=== PATIENT | female | born 1970 | race Caucasian/White ===

== ENCOUNTER 2018-03-25 23:10 | Emergency (ER) | payer MEDICARE ==
[~2018-03-25] VITALS: Ht 160 cm; Wt 68.0 kg
[2018-03-26] MEDS ORDERED: KETOROLAC TROMETHAMINE 60 MG/2 ML VIAL IM ONE (00:45)
--- NOTE | 2018-03-26 01:45 | Diagnostic Imaging Report ---
EXAM: ELBOW RIGHT COMPLETE, AP, lateral and oblique INDICATION: Fall, pain posterior right elbow COMPARISON: None FINDINGS: BONES: No acute fractures. JOINTS: No malalignment. SOFT TISSUES: Normal IMPRESSION: No evidence of a right elbow fracture. Signed by: Dr. Nichole Ahmadi M.D. on 03/26/2018 1:41 AM
== END 2018-03-26 02:04 | disposition home or self-care (01) ==
LOC: ER 23:10
DX: S50.01XA Contusion of right elbow, initial encounter (principal); W18.2XXA Fall in (into) shower or empty bathtub, initial encounter; Y93.E1 Activity, personal bathing and showering; Y92.002 Bathroom of unspecified non-institutional (private) residence as the place of occurrence of the external cause
CPT/HCPCS: 73080; 99283; J1885

== ENCOUNTER 2018-06-30 00:21 | Inpatient (IN) | payer MEDICARE ==
[2018-06-30] VITALS (8 sets, daily range): BP systolic 118–137; BP diastolic 67–73
[~2018-06-30] VITALS: Ht 160 cm; Wt 89.4 kg
--- OUTSIDE RECORDS SUMMARY | 2018-06-30 00:24 | XMS REPORT ---
Author Author [facility] Address Unknown Phone Unavailable Care Team Providers Care Equipment Operator Name Role Phone Ronald MITCHELL Unavailable Unavailable Problems This patient has no known problems. Allergies, Adverse Reactions, Alerts This patient has no known allergies or adverse reactions. Medications This patient has no known medications. Results Test Description Test Time Test Comments Text Results Atomic Results Result Comments ELBOW RIGHT COMPLETE 2018-03-26 01:41:00 [place] [id number] Patient Name: KATHIA TOTH MR #: [id number] : 1970 Age/Sex: 48/F Req #: [id number] Adm Physician: Ordered by: GOSIA MITCHELL MD Report #: [id number] Location: ER Room/Bed: Procedure: [id number] DX/ELBOW RIGHT COMPLETE Exam Date: 03/26/18 Exam Time: 0115 REPORT STATUS: Signed EXAM: ELBOW RIGHT COMPLETE, AP, lateral and oblique INDICATION: Fall, pain posterior right elbow COMPARISON: None FINDINGS: BONES: No acute fractures. JOINTS: No malalignment. SOFT TISSUES: Normal IMPRESSION: No evidence of a right elbow fracture. Signed by: Dr. Ryan Lorenzo M.D. on 03/26/2018 1:41 AM Dictated By: RYAN LORENZO MD [id number] Transcribed By: MARY on 03/26/18140 COPY TO: GOSIA MITCHELL MD
[2018-06-30] MEDS ORDERED: SODIUM CHLORIDE 0.9% 1000ML 1,000 ML IV STA (00:28)
[2018-06-30 01:16] LABS: BASOPHILS # (AUTO) 0.1 (0.0-0.1); BASOPHILS % 0.3 % (0.0-1.0); HEMATOCRIT 40.9 % (34.2-44.1); HEMOGLOBIN 13.4 g/dL (12.0-16.0); LYMPHOCYTES # (AUTO) 0.8 (1.0-3.2); LYMPHOCYTES % 2.8 % (18.0-39.1); MEAN CORPUSCULAR HEMOGLOBIN 27.4 pg (28-32); MEAN CORPUSCULAR HGB CONC 32.8 g/dL (31-35); MEAN CORPUSCULAR VOLUME 83.6 fL (81-99); MONOCYTES # (AUTO) 1.7 (0.2-0.8); MONOCYTES % 5.8 % (4.4-11.3); NEUTROPHILS # (AUTO) 25.5 (2.1-6.9); NEUTROPHILS % 90.5 % (38.7-80.0); PLATELET COUNT 380 x10e3/uL (140-360); RED BLOOD COUNT 4.89 x10e6/uL (3.6-5.1); RED CELL DISTRIBUTION WIDTH 13.2 % (11.7-14.4)
[2018-06-30 01:35] LABS: ALANINE AMINOTRANSFERASE 30 IU/L (0-55); ALBUMIN 3.5 g/dL (3.5-5.0); ALKALINE PHOSPHATASE 73 IU/L (40-150); ANION GAP 16.7 mmol/L (8-16); BLOOD UREA NITROGEN 16 mg/dL (7-26); BUN/CREATININE RATIO 19 (6-25); CALCIUM 8.7 mg/dL (8.4-10.2); CARBON DIOXIDE 19 mmol/L (22-29); CHLORIDE 107 mmol/L (98-107); CREATINE KINASE 74 IU/L (29-168); CREATININE, SERUM 0.86 mg/dL (0.57-1.11); EST GLOMERULAR FILTRATION RATE > 60 ML/MIN (60-); GLUCOSE 113 mg/dL (74-118); LIPASE 19 U/L (8-78); POTASSIUM 4.7 mmol/L (3.5-5.1); SODIUM 138 mmol/L (136-145)
--- NOTE | 2018-06-30 01:57 | Diagnostic Imaging Report ---
CHEST SINGLE (PORTABLE), 06/30/2018 12:28 AM Technique: CHEST SINGLE (PORTABLE) Comparison: 06/25/2009 Clinical history: Pain everywhere per patient, abdominal pain Findings: Likely stable cardiomediastinal silhouette given rotation. Low lung volumes with mild bibasilar vascular crowding/atelectasis. No effusion or pneumothorax. Impression: 1. Lines/Tubes: None 2. No acute abnormality. Signed by: Dr Mary Jordan MD on 06/30/2018 1:54 AM
--- NOTE | 2018-06-30 02:07 | NUR ---
patient left to radiology
[2018-06-30] MEDS ORDERED: SODIUM CHLORIDE 0.9% 50ML 50 ML ONE (02:37)
[2018-06-30] MEDS ORDERED: IOPAMIDOL 370 MG/ML 200 ML INFUS..BTL INJ ONE (02:37)
--- NOTE | 2018-06-30 03:09 | Diagnostic Imaging Report ---
EXAM: CT ABDOMEN/PELVIS W DATE: 06/30/2018 12:28 AM INDICATION: Abdominal pain the appendix is dilated up to 1.6 cm with periappendiceal inflammatory changes. No appendicolith visualized. COMPARISON: None TECHNIQUE: The abdomen and pelvis were scanned using a multidetector helical scanner. Coronal and sagittal reformations were obtained. CT low dose techniques were utilized, as applicable. IV Contrast: 100 ml Isovue 300/370 FINDINGS: LOWER THORAX: No consolidations LIVER/BILIARY: No masses. No ductal dilatation. GALLBLADDER: Unremarkable SPLEEN: Unremarkable PANCREAS: Unremarkable ADRENALS: No nodules KIDNEYS: No suspicious renal masses. No hydronephrosis. GI TRACT: No wall thickening or evidence of obstruction. The appendix is dilated up to 1.7 cm with periappendiceal inflammatory change. No visualized appendicolith VESSELS: Unremarkable PERITONEUM/RETROPERITONEUM: No free air or fluid LYMPH NODES: No lymphadenopathy REPRODUCTIVE ORGANS/BLADDER: Bladder is decompressed but bladder appears thick-walled with adjacent stranding. Hysterectomy. SOFT TISSUES: Unremarkable BONES: No suspicious bone lesions. IMPRESSION: 1. Acute uncomplicated appendicitis. 2. Nonspecific circumferential bladder wall thickening but can be seen with cystitis. Consider correlation with urinalysis. Discussed with Physician: PATRICIA JEAN MD at 3 AM on 06/30/18 Signed by: Dr Mary Jordan MD on 06/30/2018 3:05 AM
[2018-06-30] MEDS ORDERED: CEFTRIAXONE SOD 1 GM VIAL IV SCH ×2 (03:15→09:00)
[2018-06-30] MEDS ORDERED: MORPHINE SULFATE 2 MG/ML SYR IV PRN (03:30)
[2018-06-30] MEDS ORDERED: LEVOFLOXACIN 500MG/D5W 100ML IV SCH (03:30)
[2018-06-30] MEDS ORDERED: ONDANSETRON HCL INJ 2 MG/ML VIAL IV PRN (03:30)
[2018-06-30] MEDS ORDERED: CEFTRIAXONE SOD 1 GM/NS 50 ML 50 ML IV ONE (04:04)
[2018-06-30] MEDS: SODIUM CHLORIDE 0.9% 1000ML 1,000 ML IV SCH ×4 (04:20→23:55)
--- NOTE | 2018-06-30 04:48 | NUR ---
unable to obtain medication list, forgot it at home. states he will bring from home.
[2018-06-30 05:50] LABS: CLARITY,URINE CLOUDY (CLEAR); COLOR,URINE YELLOW (YELLOW); LEUKOCYTE ESTERASE ,URINE NEGATIVE (NEGATIVE); NITRITE,URINE POSITIVE (NEGATIVE)
[2018-06-30 05:51] LABS: BILIRUBIN,URINE NEGATIVE (NEGATIVE); KETONES,URINE NEGATIVE (NEGATIVE); PROTEIN,URINE DIPSTICK NEGATIVE (NEGATIVE); URINE UROBILINOGEN 1 mg/dL (0.2 - 1)
[2018-06-30] MEDS ORDERED: SODIUM CHLORIDE 0.9% 1000ML 1,000 ML ONE (06:30)
--- NOTE | 2018-06-30 07:09 | NUR ---
PT IS TRANSFERRED FROM ER .AOX3 .PT HAS ADVANCED MS .SHE NEEDS MAXIMUM HELP TO MOVE RESPIRATIOS ARE EVEN AND UNLABORED.SKIN WARM AND DRY TO TOUCH .PT C/O HEAD ACH AND PAGED DR GARCIA IV AT LEFT FA AND RT FA T.PT IS ON NS AT 100 CC/HR .PT IS NPO PHYSICAL ASSESSMENT DONE.FAMILY AT THE BEDSIDE .CALL LIGHT WITH IN REACH .CONTINUE TO MONITOR
[2018-06-30 07:43] LABS: EPITHELIAL CELLS,URINE FEW /LPF
[2018-06-30 07:44] LABS: BACTERIA,URINE MODERATE /HPF; WBC,URINE (MAN) 0-5 /HPF (0-5)
[2018-06-30] MEDS ORDERED: ACETAMINOPHEN 325 MG TAB PO ONE (08:30)
--- NOTE | 2018-06-30 09:08 | Consultation ---
DATE OF CONSULTATION: June 30, 2018 REASON FOR CONSULTATION: Acute appendicitis. The patient is a 48-year-old female who is admitted to the hospital complaining of abdominal pain, nausea, vomiting for several days. The pain is localized to the right lower quadrant and got worse, the reason for which she came to the emergency room. CT scan in the emergency room revealed acute appendicitis. PAST MEDICAL HISTORY: Significant for multiple sclerosis. She has had no previous surgeries. ALLERGIES: SHE IS ALLERGIC TO ERYTHROMYCIN AND SULFA. MEDICINES: See nurse's list. REVIEW OF SYSTEMS: Remarkable for what has been stated. PHYSICAL EXAMINATION GENERAL: Reveals a 48-year-old female in no acute distress though she has difficulty moving in bed. HEENT: Unremarkable. LUNGS: Clear. HEART: Reveals regular sinus rhythm. ABDOMEN: Soft with tenderness and rebound in the right lower quadrant with suggestion of a mass effect. EXTREMITIES: Reveal no clubbing, cyanosis or edema. ASSESSMENT 1. Acute appendicitis. 2. Multiple sclerosis. PLAN: Proceed with laparoscopic cholecystectomy. Job#: [id number] ME
[2018-06-30] MEDS ORDERED: CYMBALTA30 MG PO (10:25)
[2018-06-30] MEDS ORDERED: PRAMIPEXOLE DIHY1 MG PO (10:25)
[2018-06-30] MEDS ORDERED: TRAZODONE HCL50 MG PO (10:25)
[2018-06-30] MEDS ORDERED: ULTRAM50 MG PO (10:25)
[2018-06-30] MEDS ORDERED: ATORVASTATIN CA10 MG PO (10:25)
[2018-06-30] MEDS ORDERED: BACLOFEN10 MG PO (10:25)
--- NOTE | 2018-06-30 10:30 | NUR ---
Pt was received in bed. Pt is aox2-3 and able to verbalize needs. Pt is NPO at this time for camila dandy to be done by Dr. Kvng Jarvis. Pt has been consented for procedure and family has been notified. Pt left the floor at 1030 to go to OR for procedure.
[2018-06-30] MEDS ORDERED: BUPIVACAINE 0.5%/EPI 30 ML SDV INJ ONE (10:56)
[2018-06-30] MEDS ORDERED: METRONIDAZOLE 500MG/NS 100ML 100 ML IV ONE (11:57)
[2018-06-30] MEDS ORDERED: HYDROMORPHONE 1MG/1ML INJ IV PRN (13:00)
--- NOTE | 2018-06-30 13:00 | NUR ---
Pt returned from OR at this time. Pt is aox2-3 a little confused. Pt is to continue to be NPO. Pt has MARLA to right lower quadrant with sanguineous drainage. trochar site to belly are covered with pressure tape, zero drainage noted.
[2018-06-30] MEDS ORDERED: D5.45%NS/KCL 20MEQ 1,000 ML IV ONE (13:15)
--- NOTE | 2018-06-30 14:25 | History and Physical ---
PRESENTING COMPLAINT: Right-sided abdominal pain with nausea and vomiting, worsened today. HISTORY OF PRESENT ILLNESS: A 48-year-old female who is admitted from ER with complaints of worsening right-sided abdominal pain for one day with nausea and vomiting. The patient had this pain for the last 4-5 days, as per report. The pain is localized worse in the right abdominal quadrant with nausea and vomiting. Denies any episode of blood with vomitus, diarrhea, episode of bloody stool or black stool. The patient did not have any similar episode. The patient has a history of multiple sclerosis in the past. CT of the abdomen was positive for acute appendicitis. The patient was evaluated by Dr. Jarvis in the ER. He took the patient to the OR for laparoscopic appendectomy today. There is no reported fever, chest pain or shortness of breath at presentation. REVIEW OF SYSTEMS CONSTITUTIONAL: No fever, chills or rigors. HEENT: No nasal congestion or earaches. No visual disturbance. CARDIOVASCULAR: No chest pain or shortness of breath or palpitations. PULMONARY: No cough. No hemoptysis. GI: Abdominal pain with nausea and vomiting as per HPI. No episode of blood in vomitus or stool, no diarrhea. No episode of black stool. : No dysuria, no hematuria. MUSCULOSKELETAL/SKIN/LYMPHATIC: No joint pain. No joint swelling. NEUROLOGICAL: The patient has history of multiple sclerosis in the past. ALLERGIES: SULFA, ERYTHROMYCIN AND HYDROCODONE, EXACT REACTION NOT KNOWN. SOCIAL HISTORY: The patient is living at home prior to hospitalization. No history of smoking, alcohol or substance abuse. FAMILY HISTORY: No positive family history of CAD. PHYSICAL EXAMINATION VITAL SIGNS: At presentation, blood pressure 115/70, pulse 90, temperature 100.4, respirations 24. SPO2 96% on room air. GENERAL: Alert. The patient is status post surgery and in the PACU now. Drowsy due to sedation. HEENT: Pupils are equal and reacting. NECK: No JVD. No carotid bruit. HEART: S1 and S2 regular. No murmur. LUNGS: Air entry equal on both sides. No crackles or rhonchi. ABDOMEN: No palpable mass. Surgical wound with dressing. Dressing clean. Bowel sounds active. EXTREMITIES: No edema, cyanosis or clubbing. NEUROLOGIC: Unable to evaluate at the present situation as the patient is status post surgery and sedated. LABORATORY DATA: CBC: WBC 28.23, hemoglobin 13.4, hematocrit 40.9, platelets 380,000. MCV 83. RDW 30. Neutrophils 90, lymphocytes 2.8. Chemistry panel: Sodium 138, potassium 4.8, chloride 107, CO2 of 19. Anion gap 12. BUN 16, creatinine 0.86, glucose 113, lactic acid 18.2, calcium 8.7, total bilirubin 107, AST 25, ALT 230, alkaline phosphatase 73, CK 74, CK-MB 0.7, troponin 0.09, total protein 6.9, albumin 3.5, globulin 3.4, lipase 19. Urinalysis negative for protein, glucose, nitrites positive, leukocyte esterase negative, RBCs 11-20 and WBCs 0-5. Microbiology data: Blood culture in progress. RADIOLOGICAL DATA: Chest x-ray, single view, no acute abnormality. Cardiomediastinal shadow within normal limits. No effusion. No infiltrates. No pneumothorax. CT of the abdomen and pelvis with IV contrast. Appendix is dilated up to 1.6 cm with paraesophageal inflammatory changes. appendix. Acute and complicated appendicitis, nonspecific circumferential blood and wall thickening, consider possible cystitis. EKG . ASSESSMENT AND PLAN 1. Right-sided lower abdominal pain that worsened today due to acute appendicitis. CT of the abdomen is positive for acute appendicitis with possible cystitis. The patient had leukocytosis. She had urgent laparoscopic appendectomy done by Dr. Jarvis today. Continue the patient on IV antibiotics, IV fluids. Follow the urine culture report and blood culture report. 2. History of multiple sclerosis. Continue her regular medication. 3. Dehydration. Continue the patient on IV fluids. 4. Nutrition: Start her on oral feeding when okay by general surgery. 5. Deep venous thrombosis prophylaxis. Keep the patient on SCDs for now. DISCHARGE PLAN: Will discharge the patient home when cleared by general surgery. Job#: [id number]
[2018-06-30] MEDS ORDERED: FENTANYL CITRATE/PF 100MCG/2 ML INJ ONE (14:29)
[2018-06-30] MEDS ORDERED: MIDAZOLAM HCL 2 MG/2 ML VIAL ONE (14:29)
[2018-06-30] MEDS ORDERED: ONDANSETRON HCL INJ 2 MG/ML VIAL ONE (14:30)
[2018-06-30] MEDS ORDERED: PROPOFOL IV EMULSION 10 MG/ML 20 ML VIAL ONE (14:30)
[2018-06-30] MEDS ORDERED: ROCURONIUM BROMIDE 10 MG/ML 5ML VIAL ONE (14:30)
[2018-06-30] MEDS ORDERED: ACETAMINOPHEN 1000 MG/100 ML IV ONE (14:30)
[2018-06-30] MEDS ORDERED: DEXAMETHASONE SOD PHOS INJ 4 MG/ML VIAL ONE (14:30)
[2018-06-30] MEDS ORDERED: LIDOCAINE HCL 2% LOCAL INJ 5 ML SDV VIAL INJ ONE (14:30)
[2018-06-30] MEDS ORDERED: SEVOFLURANE INHAL SOLN 250 ML PEN BTL ONE (14:30)
[2018-06-30] MEDS: HYDROMORPHONE 2MG/ML 2 MG/ML ML IV PRN ×3 (14:35→23:53)
--- NOTE | 2018-06-30 15:20 | Operative Report ---
DATE OF PROCEDURE: June 30, 2018 PREOPERATIVE DIAGNOSES 1. Acute appendicitis. 2. Multiple sclerosis. POSTOPERATIVE DIAGNOSES 1. Acute gangrenous appendicitis. 2. Umbilical hernia. 3. Multiple sclerosis. PROCEDURES PERFORMED 1. Laparoscopic appendectomy. 2. Repair of umbilical hernia. ANESTHESIA: General. ESTIMATED BLOOD LOSS: Minimal. DRAINS: None. COMPLICATIONS: None. INDICATIONS AND FINDINGS: The patient is a 48-year-old female complaining of abdominal pain for several days localized to the right lower quadrant. CT scan revealed acute appendicitis with inflammatory changes surrounding the appendix. INTRAOPERATIVE FINDINGS: Acute gangrenous appendicitis. The patient also had a small umbilical hernia through which the trocar was placed and then closed at the end of the procedure. There was no abscess and no major free fluid. The appendix was gangrenous in its totality except for the junction with the cecum, and we were able to transect the appendix at the area of the junction with the cecum, taking a small piece of the cecum with it in an area that was viable. At the end of the procedure, we irrigated the operative field and inspected for any type of bleeding or bowel injury, and none was seen. The patient's was informed of the intraoperative findings. DESCRIPTION OF PROCEDURE: With the patient lying on the operating table in the supine position, after administration of general endotracheal anesthesia, she was prepped and draped for laparoscopic appendectomy. The procedure was begun by establishing a pneumoperitoneum in the right upper quadrant mid-clavicular line because of what appeared to be a scar in the umbilicus. An incision was made then. The Veress needle was introduced after the saline drop test was performed, and a 5-mm trocar was placed. After we did that, we completed the insertion of trocars in the right lower quadrant on the umbilical site with an 11-12 trocar. We had to put an extra trocar in the right upper quadrant using 5-mm trocar in addition to the other two 5-mm trocars. The procedure was then begun. We identified the cecum and terminal ileum. Then we identified initially the base of the appendix at the junction with the cecum. The appendix itself was covered by fat and some omentum. Once we dissected that off the appendix, we found that it was gangrenous and necrotic. We were able to mobilize it, carefully avoiding any transection of the appendix, though there was some spillage of purulent fluid and necrotic fluid in the wall of the appendix as we mobilized it. We then went ahead and were able to make a rent in the junction of the appendix with the cecum and transected with the Endo KEMI with the blue load. We placed a 2nd stapler load in a small area of the cecum that had not been transected. After we completed the transection of the appendix taking a small piece of the cecum, we then transected the mesoappendix with the Endo KEMI white load stapler, detached the appendix, placed it in an Endo bag and removed through the umbilical port. We went ahead and then copiously irrigated the right lower quadrant gutter, subhepatic space and the pelvis. Then, after we ascertained there was no bleeding and no bile leak, we went ahead and placed a 10-mm flat Damion-Ruffin drain to drain the right gutter and pelvis. This was brought out through the right lower quadrant 5-mm trocar and secured to the skin with 3-0 silk and connected to self-suction. At this point, we released the pneumoperitoneum. The sponge and instrument count was correct. There was an umbilical defect with herniation of properitoneal fat, which was excised. Then the wound there was closed with 3 interrupted #0 Ethibond sutures. After we completed that, we irrigated the wounds and then closed the umbilical site with 3-0 Vicryl for the soft tissues and 3-0 silk for the skin. The 5-mm trocar sites were then irrigated and infiltrated with 0.25% Marcaine with epinephrine and closed with 3-0 silk as well as the umbilical incision. The patient tolerated the procedure well and was taken to the recovery room in stable condition. The family was informed of the intraoperative findings and the fact that this was not simple uncomplicated appendix as it was read by the CAT scan but rather a gangrenous appendicitis, which is to be expected given the fact that this patient had a several-day history of abdominal pain. They are also aware of the fact that this was not the optimal time to repair an umbilical hernia and that she may recur later on. Job#: [id number]
[2018-06-30] MEDS: CEFTRIAXONE SOD 2 GM/NS 100 ML 100 ML IV SCH (16:21)
[2018-06-30] MEDS: PANTOPRAZOLE 40 MG 10ML VIAL IV SCH (16:21)
[2018-06-30] MEDS: PRAMIPEXOLE DIHYDROCHLORIDE 1 MG TAB PO SCH (17:00)
[2018-06-30] MEDS: BACLOFEN 10 MG TAB PO SCH (17:00)
[2018-06-30] MEDS: METRONIDAZOLE 500MG/NS 100ML 100 ML IV SCH (17:27)
[2018-06-30] MEDS: PIPER-TAZ 3.375 GM 50 ML IV SCH ×2 (17:35→23:53)
[2018-06-30] MEDS ORDERED: ACETAMINOPHEN 325 MG TAB PO PRN (18:00)
[2018-06-30] MEDS: TRAZODONE HCL 50 MG TAB PO SCH (21:18)
[2018-06-30] MEDS: ATORVASTATIN 10 MG TAB PO SCH (21:18)
[2018-07-01] VITALS (9 sets, daily range): BP systolic 100–131; BP diastolic 51–76
[2018-07-01] MEDS: METRONIDAZOLE 500MG/NS 100ML 100 ML IV SCH ×4 (00:29→17:18)
[2018-07-01] MEDS: HYDROMORPHONE 2MG/ML 2 MG/ML ML IV PRN ×3 (04:21→18:20)
--- NOTE | 2018-07-01 04:23 | NUR ---
patient was complaining of having hard time breathing, looks like she had panic attack. nurse calmed her down and she breaths slower. vitals checked, O2 sat is 97-98 on nasal canula 3 liter. also gave her Dilaudid PRN since she also complained of pain. patient then calmed down and started breathing normal and verbalized needs normal again. pulse oxygen is still on right now to monitor her O2 sat. will continue to monitor closely.
[2018-07-01 05:57] LABS: BASOPHILS % 0.2 % (0.0-1.0); HEMATOCRIT 36.5 % (34.2-44.1); HEMOGLOBIN 11.6 g/dL (12.0-16.0); LYMPHOCYTES # (AUTO) 0.9 (1.0-3.2); MEAN CORPUSCULAR HGB CONC 31.8 g/dL (31-35); MEAN CORPUSCULAR VOLUME 85.1 fL (81-99); MONOCYTES # (AUTO) 0.8 (0.2-0.8); MONOCYTES % 3.8 % (4.4-11.3); NEUTROPHILS # (AUTO) 19.5 (2.1-6.9); NEUTROPHILS % 91.6 % (38.7-80.0); PLATELET COUNT 300 x10e3/uL (140-360); RED BLOOD COUNT 4.29 x10e6/uL (3.6-5.1); RED CELL DISTRIBUTION WIDTH 13.4 % (11.7-14.4)
[2018-07-01 06:09] LABS: INR 1.19; PROTHROMBIN TIME 16.2 seconds (11.9-14.5)
[2018-07-01] MEDS: PIPER-TAZ 3.375 GM 50 ML IV SCH ×4 (06:13→23:27)
[2018-07-01 06:21] LABS: ALANINE AMINOTRANSFERASE 22 IU/L (0-55); ALBUMIN 2.4 g/dL (3.5-5.0); ALBUMIN/GLOBULIN RATIO 0.8 (0.8-2.0); ALKALINE PHOSPHATASE 55 IU/L (40-150); BLOOD UREA NITROGEN 10 mg/dL (7-26); BUN/CREATININE RATIO 11 (6-25); CARBON DIOXIDE 20 mmol/L (22-29); CHLORIDE 108 mmol/L (98-107); CREATININE, SERUM 0.92 mg/dL (0.57-1.11); EST GLOMERULAR FILTRATION RATE > 60 ML/MIN (60-); GLUCOSE 96 mg/dL (74-118); SODIUM 138 mmol/L (136-145)
[2018-07-01 06:30] LABS: ANION GAP 13.5 mmol/L (8-16)
[2018-07-01 06:32] LABS: POTASSIUM 3.5 mmol/L (3.5-5.1)
[2018-07-01] MEDS ORDERED: DULERA 100 MCG/13 GM IH (08:32)
[2018-07-01] MEDS: BACLOFEN 10 MG TAB PO SCH ×2 (09:00→17:15)
[2018-07-01] MEDS: DULOXETINE HCL 30 MG DELAYED RELEASE PO SCH (09:00)
[2018-07-01] MEDS ORDERED: CEFTRIAXONE SOD 1 GM VIAL IV SCH (09:00)
[2018-07-01] MEDS ORDERED: PANTOPRAZOLE 40 MG 10ML VIAL IV SCH (09:00)
[2018-07-01] MEDS: PRAMIPEXOLE DIHYDROCHLORIDE 1 MG TAB PO SCH ×2 (09:00→17:15)
--- NOTE | 2018-07-01 10:45 | NUR ---
Rechecked BP- 112/63, AAOx3 , resting in bed, denies any SOB this time, no distress noted, at bed side
[2018-07-01] MEDS: SODIUM CHLORIDE 0.9% 1000ML 1,000 ML IV SCH (10:53)
[2018-07-01] MEDS: MORPHINE SULFATE INJ 4 MG/ML INJ IV PRN ×3 (10:53→21:00)
--- NOTE | 2018-07-01 11:20 | NUR ---
patient was c/o SOB, checked saturation 96% with O2 3L, Dr Koroma here for rounds, new orders recvd, patient not in any distress, redirected her and encouraged to relax, keep monitoring
[2018-07-01] MEDS: ALBUTEROL/IPRATROPIUM 3 ML NEB NEB PRN ×3 (13:10→19:22)
[2018-07-01] MEDS: PANTOPRAZOLE 40 MG 10ML VIAL IV SCH (13:12)
[2018-07-01] MEDS: D5NS/KCL 20MEQ 1,000 ML IV SCH ×2 (14:10→20:30)
[2018-07-01 15:08] LABS: BASOPHILS # (AUTO) 0.1 (0.0-0.1); BASOPHILS % 0.3 % (0.0-1.0); HEMATOCRIT 36.5 % (34.2-44.1); HEMOGLOBIN 11.6 g/dL (12.0-16.0); LYMPHOCYTES # (AUTO) 0.8 (1.0-3.2); MEAN CORPUSCULAR HEMOGLOBIN 27.3 pg (28-32); MEAN CORPUSCULAR HGB CONC 31.8 g/dL (31-35); MEAN CORPUSCULAR VOLUME 85.9 fL (81-99); MONOCYTES # (AUTO) 0.7 (0.2-0.8); MONOCYTES % 3.4 % (4.4-11.3); NEUTROPHILS # (AUTO) 19.1 (2.1-6.9); NEUTROPHILS % 91.5 % (38.7-80.0); PLATELET COUNT 280 x10e3/uL (140-360); RED BLOOD COUNT 4.25 x10e6/uL (3.6-5.1); RED CELL DISTRIBUTION WIDTH 13.4 % (11.7-14.4)
[2018-07-01 15:22] LABS: ANION GAP 13.7 mmol/L (8-16); CALCIUM 8.5 mg/dL (8.4-10.2); CREATININE, SERUM 1.06 mg/dL (0.57-1.11); POTASSIUM 3.7 mmol/L (3.5-5.1)
[2018-07-01] MEDS: CEFTRIAXONE SOD 2 GM/NS 100 ML 100 ML IV SCH (16:10)
--- NOTE | 2018-07-01 18:42 | NUR ---
patient resting in bed, Denies any SOB, abdominal dressing is intact, tolerated with clear liq diet, not in any distress
[2018-07-01] MEDS: BUDESONIDE/FORMOTEROL 160/4.5MCG INHALER INH SCH (19:22)
[2018-07-01] MEDS: ATORVASTATIN 10 MG TAB PO SCH (20:45)
[2018-07-01] MEDS: TRAZODONE HCL 50 MG TAB PO SCH (20:45)
--- NOTE | 2018-07-01 21:00 | NUR ---
Pt resting comfortably. Family at bedside. Expresses pain to abdomen. Will medicate accordingly. Breathing even, unlabored. Skin warm, dry to touch. Call light within reach. Will continue to monitor.
--- NOTE | 2018-07-01 22:12 | NUR ---
Provided popsicle per pt's request. Pt tolerating well. No nausea/vomiting.
[2018-07-02] VITALS (8 sets, daily range): BP systolic 100–121; BP diastolic 56–78
[2018-07-02] MEDS: ALBUTEROL/IPRATROPIUM 3 ML NEB NEB PRN ×3 (00:05→11:10)
[2018-07-02] MEDS: METRONIDAZOLE 500MG/NS 100ML 100 ML IV SCH ×4 (00:43→17:52)
[2018-07-02 05:12] LABS: BASOPHILS # (AUTO) 0.1 (0.0-0.1); BASOPHILS % 0.3 % (0.0-1.0); EOSINOPHILS % 0.2 % (0.0-6.0); HEMATOCRIT 36.2 % (34.2-44.1); HEMOGLOBIN 11.5 g/dL (12.0-16.0); LYMPHOCYTES # (AUTO) 0.8 (1.0-3.2); LYMPHOCYTES % 4.4 % (18.0-39.1); MEAN CORPUSCULAR HEMOGLOBIN 27.1 pg (28-32); MEAN CORPUSCULAR HGB CONC 31.8 g/dL (31-35); MEAN CORPUSCULAR VOLUME 85.2 fL (81-99); MONOCYTES # (AUTO) 0.7 (0.2-0.8); MONOCYTES % 3.8 % (4.4-11.3); NEUTROPHILS # (AUTO) 16.9 (2.1-6.9); NEUTROPHILS % 90.8 % (38.7-80.0); PLATELET COUNT 275 x10e3/uL (140-360); RED BLOOD COUNT 4.25 x10e6/uL (3.6-5.1); RED CELL DISTRIBUTION WIDTH 13.7 % (11.7-14.4)
[2018-07-02 05:34] LABS: ALANINE AMINOTRANSFERASE 19 IU/L (0-55); ALBUMIN 2.2 g/dL (3.5-5.0); ALBUMIN/GLOBULIN RATIO 0.6 (0.8-2.0); ALKALINE PHOSPHATASE 62 IU/L (40-150); ANION GAP 11.5 mmol/L (8-16); BLOOD UREA NITROGEN 10 mg/dL (7-26); BUN/CREATININE RATIO 12 (6-25); CALCIUM 8.5 mg/dL (8.4-10.2); CARBON DIOXIDE 22 mmol/L (22-29); CHLORIDE 105 mmol/L (98-107); CREATININE, SERUM 0.86 mg/dL (0.57-1.11); EST GLOMERULAR FILTRATION RATE > 60 ML/MIN (60-); GLUCOSE 142 mg/dL (74-118); POTASSIUM 3.5 mmol/L (3.5-5.1); SODIUM 135 mmol/L (136-145)
[2018-07-02] MEDS: D5NS/KCL 20MEQ 1,000 ML IV SCH ×3 (05:43→23:30)
[2018-07-02] MEDS: PIPER-TAZ 3.375 GM 50 ML IV SCH ×4 (05:44→23:50)
--- NOTE | 2018-07-02 06:20 | NUR ---
Pt to radiology via bed for KUB.
--- NOTE | 2018-07-02 06:56 | Diagnostic Imaging Report ---
EXAM: CHEST 2 VIEWS, PA and lateral INDICATION: Shortness of breath COMPARISON: CT of the abdomen and pelvis April 30, 2018 and AP view the chest June 30, 2018 FINDINGS: LINES/TUBES: None LUNGS: Interval development of right lower lobe atelectasis. PLEURA: Interval development of small right pleural effusion. HEART AND MEDIASTINUM: Normal size and contour. BONES AND SOFT TISSUES: No acute findings. IMPRESSION: Interval development of right lower lobe atelectasis and small right pleural effusion. Signed by: Dr. Nichole Ahmadi M.D. on 07/02/2018 6:52 AM
[2018-07-02] MEDS: BUDESONIDE/FORMOTEROL 160/4.5MCG INHALER INH SCH ×2 (06:58→20:00)
[2018-07-02] MEDS: MORPHINE SULFATE INJ 4 MG/ML INJ IV PRN ×2 (07:05→13:30)
--- NOTE | 2018-07-02 08:30 | Diagnostic Imaging Report ---
PROCEDURE:X-RAY ABDOMEN - KUB COMPARISON:[facility], CT, CT ABDOMEN/PELVIS W, 06/30/2018, 2:17. INDICATIONS:POST APPENDECTOMY, WITH ABDOMINAL PAIN FINDINGS:Exam is degraded by patient motion. Dilated loops of small bowel are present likely secondary to an ileus. Multiple surgical drains overlie the abdomen and pelvis. There are no masses or abnormal calcifications. No acute osseous abnormalities are present. CONCLUSION: Dilated loops of small bowel likely secondary to a post operative ileus. Lacho Mcnair D.O. Dictated by: Lacho Mcnair D.O. on 07/02/2018 at 8:41 Electronically approved by: Lacho Mcnair D.O. on 07/02/2018 at 8:41
[2018-07-02] MEDS: PRAMIPEXOLE DIHYDROCHLORIDE 1 MG TAB PO SCH ×2 (09:34→16:50)
[2018-07-02] MEDS: BACLOFEN 10 MG TAB PO SCH ×2 (09:35→16:50)
[2018-07-02] MEDS: DULOXETINE HCL 30 MG DELAYED RELEASE PO SCH (09:35)
[2018-07-02] MEDS: PANTOPRAZOLE 40 MG 10ML VIAL IV SCH (13:09)
[2018-07-02] MEDS ORDERED: FUROSEMIDE INJ 10 MG/ML 2 ML VIAL IV NR (14:15)
[2018-07-02] MEDS: POTASSIUM CHLORIDE 20 MEQ TAB CR PO SCH (15:30)
[2018-07-02] MEDS: ENOXAPARIN SOD INJ 40 MG/0.4 ML SYR SC SCH (16:50)
[2018-07-02] MEDS ORDERED: HYDROMORPHONE 1MG/1ML INJ IV PRN (18:45)
[2018-07-02] MEDS ORDERED: HYDROCODONE/APAP 7.5MG-325MG 1 EA TAB PO PRN (18:45)
--- NOTE | 2018-07-02 19:00 | NUR ---
Completed bedside rounds with morning nurse. Pt lying in bed HOB 30 degrees. Lying quietly with eyes closed. Family at bedside. No acute distress noted.
--- NOTE | 2018-07-02 19:14 | Consultation ---
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 She is admitted with 3 days of progressive right lower quadrant pain. She has a history of multiple sclerosis. She walks with a walker. She has urinary incontinence. She has history of bronchial asthma, history of smoking a pack per day for 8 years. She has history of gangrenous gallbladder and umbilical hernia. ALLERGIES: SULFA, ERYTHROMYCIN AND VICODIN. MEDICATIONS: Dulera, Lipitor, Baclofen, duloxetine, ____ and trazodone. PAST SURGICAL HISTORY: Appendectomy now and hysterectomy in the past, and hernia repair. SOCIAL HISTORY: She smoked a pack a day for 8 years. She quit 12 years ago. FAMILY HISTORY: Positive for carcinoma of the pancreas. PHYSICAL EXAMINATION GENERAL: She is a bright, white female in no acute distress. She is looking her stated age. VITAL SIGNS: Temperature on admission was 100.4, and now it is 98.6. Pulse 90. Respirations 18. Blood pressure 107/60. HEENT: Head is normocephalic, atraumatic. Eyes with extraocular movements intact. LUNGS: Diminished breath sounds with some splinting. ABDOMEN: MARLA drain is noted. Tender. EXTREMITIES: Not edematous. IMPRESSION 1. Multiple sclerosis. 2. Status post appendectomy for gangrenous appendix. 3. Sympathetic right pleural effusion. PLAN: Decrease IV fluids. Continue current antibiotics. Optimize bronchodilators. Adjust physiotherapy. Improve mobilization. Continue bronchodilators. The patient is currently on Flagyl and Zosyn. Thank you for this kind referral. Job#: [id number]
[2018-07-02] MEDS: ALBUTEROL/IPRATROPIUM 3 ML NEB NEB SCH (20:00)
[2018-07-02] MEDS: ATORVASTATIN 10 MG TAB PO SCH (21:07)
[2018-07-02] MEDS: TRAZODONE HCL 50 MG TAB PO SCH (21:07)
[2018-07-02] MEDS: HYDROMORPHONE 2MG/ML 2 MG/ML ML IV PRN (21:07)
[2018-07-03] VITALS (7 sets, daily range): BP systolic 81–125; BP diastolic 52–78
[2018-07-03] MEDS: ONDANSETRON HCL INJ 2 MG/ML VIAL IV PRN ×2 (00:15→05:50)
[2018-07-03] MEDS: METRONIDAZOLE 500MG/NS 100ML 100 ML IV SCH ×4 (00:55→17:35)
[2018-07-03] MEDS: ALBUTEROL/IPRATROPIUM 3 ML NEB NEB SCH ×4 (01:00→19:30)
[2018-07-03 05:21] LABS: BASOPHILS % 0.2 % (0.0-1.0); EOSINOPHILS # (AUTO) 0.5 (0.0-0.4); EOSINOPHILS % 2.9 % (0.0-6.0); HEMATOCRIT 35.4 % (34.2-44.1); HEMOGLOBIN 11.4 g/dL (12.0-16.0); LYMPHOCYTES # (AUTO) 0.8 (1.0-3.2); LYMPHOCYTES % 5.2 % (18.0-39.1); MEAN CORPUSCULAR HEMOGLOBIN 27.1 pg (28-32); MEAN CORPUSCULAR HGB CONC 32.2 g/dL (31-35); MEAN CORPUSCULAR VOLUME 84.3 fL (81-99); MONOCYTES # (AUTO) 0.9 (0.2-0.8); MONOCYTES % 5.3 % (4.4-11.3); NEUTROPHILS # (AUTO) 13.8 (2.1-6.9); NEUTROPHILS % 85.8 % (38.7-80.0); PLATELET COUNT 323 x10e3/uL (140-360); RED CELL DISTRIBUTION WIDTH 13.7 % (11.7-14.4)
[2018-07-03 05:44] LABS: ANION GAP 8.9 mmol/L (8-16); BLOOD UREA NITROGEN 6 mg/dL (7-26); BUN/CREATININE RATIO 8 (6-25); CALCIUM 8.5 mg/dL (8.4-10.2); CARBON DIOXIDE 25 mmol/L (22-29); CHLORIDE 107 mmol/L (98-107); CREATININE, SERUM 0.77 mg/dL (0.57-1.11); EST GLOMERULAR FILTRATION RATE > 60 ML/MIN (60-); GLUCOSE 127 mg/dL (74-118); POTASSIUM 3.9 mmol/L (3.5-5.1); SODIUM 137 mmol/L (136-145)
[2018-07-03] MEDS: PIPER-TAZ 3.375 GM 50 ML IV SCH ×3 (05:50→18:38)
--- NOTE | 2018-07-03 05:59 | NUR ---
Taken to Radiology for chest xray.
--- NOTE | 2018-07-03 06:11 | NUR ---
Back from radiology, no distress noted.
--- NOTE | 2018-07-03 06:48 | Diagnostic Imaging Report ---
EXAM: CHEST 2 VIEWS DATE: 07/03/2018 Time stamp on exam: 5:59 AM INDICATION: Appendicitis with right pleural effusion. COMPARISON: 07/02/2018 FINDINGS: LINES/TUBES: None LUNGS: Right basilar opacity is unchanged. Linear subsegmental left atelectasis. PLEURA: Small right pleural effusion unchanged. HEART AND MEDIASTINUM: Normal size and contour. BONES AND SOFT TISSUES: No acute findings. IMPRESSION: Right basilar opacity and right pleural effusion is unchanged. Signed by: Dr. Lacho Mcnair DO on 07/03/2018 6:45 AM
[2018-07-03 07:05] LABS: ALBUMIN 2.1 g/dL (3.5-5.0); BILIRUBIN,DIRECT 0.3 mg/dL (0.0-0.5)
[2018-07-03] MEDS: BUDESONIDE/FORMOTEROL 160/4.5MCG INHALER INH SCH ×2 (07:18→19:30)
[2018-07-03] MEDS: BACLOFEN 10 MG TAB PO SCH ×2 (08:41→17:54)
[2018-07-03] MEDS: POTASSIUM CHLORIDE 20 MEQ TAB CR PO SCH (08:41)
[2018-07-03] MEDS: DULOXETINE HCL 30 MG DELAYED RELEASE PO SCH (08:41)
[2018-07-03] MEDS: PRAMIPEXOLE DIHYDROCHLORIDE 1 MG TAB PO SCH ×2 (08:41→17:54)
--- NOTE | 2018-07-03 09:15 | NUR ---
Patient resting in bed, Dr Kvng Jarvis here for rounds, dressing changed, MARLA Drain is out
[2018-07-03] MEDS: HYDROMORPHONE 2MG/ML 2 MG/ML ML IV PRN (09:30)
[2018-07-03] MEDS ORDERED: MORPHINE SULFATE 5 MG/ML VIAL IV PRN (10:00)
[2018-07-03] MEDS ORDERED: MORPHINE SULFATE INJ 4 MG/ML INJ IV PRN (10:15)
[2018-07-03] MEDS: MEROPENEM 500MG/ NS 50ML 50 ML IV SCH ×2 (12:00→18:12)
[2018-07-03] MEDS: PANTOPRAZOLE 40 MG 10ML VIAL IV SCH (13:03)
--- NOTE | 2018-07-03 14:31 | NUR ---
PT DC PLAN DISCUSSED IN ROUNDS TODAY. MET W THE PT AT THE BEDSIDE. PT AGREED SHE WILL PROBABLY DC TOMORROW OR SATURDAY. EXPLAINED IMM. PT VERBALIZED UNDERSTANDING. IMM LETTER WAS SIGNED AND COPY TO PT AND COPY TO CHART. Addendum: 07/03/18 at 1434 by Shani Bruno CM ABILIO Rm PT STATES THEY RECOMMENDED SNF FOR THE PT. Addendum: 07/03/18 at 1434 by Shani Bruno CM ADDENDUM: MET W THE PT AND SPOUSE. THE SIGNED IMM AND AGREED W THE PLAN.
--- NOTE | 2018-07-03 17:05 | NUR ---
patient in bed, Alert with no distress, incision site on abdomen open to air, no drainage or bleeding noted, iv fluid son flow, at bed side
[2018-07-03] MEDS: TRAMADOL HCL 50 MG TAB PO PRN (17:53)
[2018-07-03] MEDS: D5NS/KCL 20MEQ 1,000 ML IV SCH (17:54)
[2018-07-03] MEDS: ENOXAPARIN SOD INJ 40 MG/0.4 ML SYR SC SCH (17:54)
--- NOTE | 2018-07-03 19:05 | NUR ---
Completed bedside rounds with morning nurse. Pt lying in bed HOB 45 degrees. Lying quietly with eyes closed. Family at bedside. No acute distress noted.
[2018-07-03] MEDS: ATORVASTATIN 10 MG TAB PO SCH (20:49)
[2018-07-03] MEDS: TRAZODONE HCL 50 MG TAB PO SCH (20:49)
--- NOTE | 2018-07-03 20:50 | NUR ---
D/C 20g IV right FA, pt tolerated well.
[2018-07-04] VITALS (7 sets, daily range): BP systolic 108–127; BP diastolic 61–75
[2018-07-04] MEDS: METRONIDAZOLE 500MG/NS 100ML 100 ML IV SCH ×4 (00:30→19:00)
[2018-07-04] MEDS: ALBUTEROL/IPRATROPIUM 3 ML NEB NEB SCH ×4 (01:00→20:00)
[2018-07-04] MEDS: PIPER-TAZ 3.375 GM 50 ML IV SCH ×4 (01:00→17:54)
[2018-07-04] MEDS: MEROPENEM 500MG/ NS 50ML 50 ML IV SCH ×3 (03:00→18:03)
[2018-07-04 06:03] LABS: BASOPHILS % 0.2 % (0.0-1.0); EOSINOPHILS % 8.5 % (0.0-6.0); HEMATOCRIT 33.4 % (34.2-44.1); HEMOGLOBIN 10.9 g/dL (12.0-16.0); LYMPHOCYTES # (AUTO) 1.1 (1.0-3.2); LYMPHOCYTES % 9.2 % (18.0-39.1); MEAN CORPUSCULAR HEMOGLOBIN 27.3 pg (28-32); MEAN CORPUSCULAR HGB CONC 32.6 g/dL (31-35); MEAN CORPUSCULAR VOLUME 83.7 fL (81-99); MONOCYTES # (AUTO) 0.9 (0.2-0.8); MONOCYTES % 7.6 % (4.4-11.3); NEUTROPHILS # (AUTO) 8.9 (2.1-6.9); NEUTROPHILS % 73.5 % (38.7-80.0); PLATELET COUNT 327 x10e3/uL (140-360); RED BLOOD COUNT 3.99 x10e6/uL (3.6-5.1); RED CELL DISTRIBUTION WIDTH 13.8 % (11.7-14.4)
[2018-07-04 06:34] LABS: ALANINE AMINOTRANSFERASE 15 IU/L (0-55); ALBUMIN 1.9 g/dL (3.5-5.0); ALBUMIN/GLOBULIN RATIO 0.6 (0.8-2.0); ALKALINE PHOSPHATASE 65 IU/L (40-150); ANION GAP 10.2 mmol/L (8-16); BLOOD UREA NITROGEN 5 mg/dL (7-26); BUN/CREATININE RATIO 7 (6-25); CARBON DIOXIDE 24 mmol/L (22-29); CHLORIDE 108 mmol/L (98-107); EST GLOMERULAR FILTRATION RATE > 60 ML/MIN (60-); GLUCOSE 105 mg/dL (74-118); POTASSIUM 3.2 mmol/L (3.5-5.1); SODIUM 139 mmol/L (136-145)
--- NOTE | 2018-07-04 06:58 | Diagnostic Imaging Report ---
EXAM: CHEST SINGLE (PORTABLE), AP 1 view INDICATION: Follow-up effusion, shortness of breath COMPARISON: PA and lateral view of the chest July 03, 2018 FINDINGS: LINES/TUBES: None LUNGS: Bibasilar atelectasis. PLEURA: Moderate right pleural effusion, increased from prior exam. Possible small left pleural effusion. HEART AND MEDIASTINUM: Normal size and contour. BONES AND SOFT TISSUES: No acute findings. IMPRESSION: Increasing right pleural effusion. Signed by: Dr. Nichole Ahmadi M.D. on 07/04/2018 6:54 AM
--- NOTE | 2018-07-04 07:08 | NUR ---
PATIENT IN BED WITH HEAD ELEVATED WATCHING TV, NO RESPIRATORY DISTRESS OBSERVED. 3 TROCAR SITES TO ABDOMEN OPEN TO AIR WITH STITCHES INTACT. DRESSING TO RIGHT LOWER ABDOMEN, OLD MARLA DRAIN SITE. SCD IN PLACE. RIGHT HAND SWELLING, ELEVATED ON PILLOW. DENIED PAIN AT THIS TIME. BED IN LOWER POSITION, CALL LIGHT AT REACH.
[2018-07-04] MEDS: BUDESONIDE/FORMOTEROL 160/4.5MCG INHALER INH SCH ×2 (07:12→20:00)
[2018-07-04] MEDS ORDERED: POTASSIUM CHLORIDE 10MEQ EA PO NR (08:30)
[2018-07-04] MEDS: DULOXETINE HCL 30 MG DELAYED RELEASE PO SCH (09:17)
[2018-07-04] MEDS: POTASSIUM CHLORIDE 20 MEQ TAB CR PO SCH (09:18)
[2018-07-04] MEDS: PRAMIPEXOLE DIHYDROCHLORIDE 1 MG TAB PO SCH ×2 (09:18→17:54)
[2018-07-04] MEDS: BACLOFEN 10 MG TAB PO SCH ×2 (09:18→17:54)
--- NOTE | 2018-07-04 10:04 | NUR ---
PATIENT OFF UNIT TO RADIOLOGY.
--- NOTE | 2018-07-04 10:40 | NUR ---
PATIENT BACK TO UNIT FROM RADIOLOGY.
--- NOTE | 2018-07-04 10:51 | Diagnostic Imaging Report ---
Exam: KUB (three views) Clinical History: Abdominal pain, nausea post surgery. Comparison: CT abdomen/pelvis 06/30/2018. Findings: Multiple dilated small bowel loops measuring up to 4.3 cm. Colon loops measure up to 6 cm. There is no evidence of free intraperitoneal air. There are no abnormal calcifications. No acute bony findings. Impression: Dilated small loops with air seen in non-dilated but prominent colonic loops. Findings likely represent post-operative ileus, although developing partial small bowel obstruction can have a similar appearance. Follow-up radiographs are suggested. Signed by: Dr. Ralf Mckenzie MD on 07/04/2018 10:47 AM
[2018-07-04] MEDS: D5NS/KCL 20MEQ 1,000 ML IV SCH ×2 (12:10→17:00)
[2018-07-04] MEDS: PANTOPRAZOLE 40 MG 10ML VIAL IV SCH (13:21)
--- NOTE | 2018-07-04 13:54 | Consultation ---
DATE OF CONSULTATION: July 04, 2018 CARDIOLOGY CONSULTATION REASON FOR CONSULTATION: Abnormal BNP and . HISTORY: Ms. Cinthia Laguna is a pleasant 48-year-old woman with a history of multiple sclerosis, relapsing. Followed up by outpatient neurologist, who presents with an episode of appendicitis for which she underwent surgical resection of appendix, as well as umbilical hernia repair. She denies currently chest pain or shortness of breath. Does report a history of bronchial asthma and former smoker for 8 years. Her BNP was borderline elevated. She was noted to have right-sided pleural effusion for which pulmonary has been consulted for further assessment. She denies orthopnea, lower extremity edema, paroxysmal nocturnal dyspnea, syncope, or palpitations. She denies exertional symptoms prior to getting admitted to the hospital. REVIEW OF SYSTEMS: A 12-system review is negative except for as noted above. ALLERGIES: INCLUDE PER EMR, SULFA, ERYTHROMYCIN AND VANCOMYCIN. SURGICAL HISTORY: Prior hysterectomy and now status post appendectomy and hernia repair. SOCIAL HISTORY: Smoker for 8 years. Quit 12 years ago. No alcohol or drugs. FAMILY HISTORY: Significant for pancreatic cancer. PHYSICAL EXAMINATION VITALS: Temperature 99.1, heart rate 90, respiratory rate 20, blood pressure 115/65, O2 sat 93% on room air. GENERAL: In no acute distress. Alert. NECK: No JVD. CHEST: Scattered rhonchi. Decreased breath sounds at the lateral bases. CARDIOVASCULAR: Regular rate and rhythm. Normal S1 and S2. No S3 or S4. No murmurs or rubs. ABDOMEN: Soft. Incision scars and dressings in place. EXTREMITIES: No edema. Warm lower extremities. CARDIOVASCULAR MEDICATIONS: Reviewed. 1. Lovenox 40 mg subcutaneous daily. 2. Hydromorphone. 3. KCl. STUDIES: Reviewed. Sodium 139, potassium 3.2, chloride 108, bicarbonate 24, BUN 5, creatinine 0.7, glucose 105. Calcium 8. AST 11, ALT 15, alk phos 65, total bilirubin 0.4, total protein 5.1, albumin 1.9. Her BNP was 191. Elevated troponin I at 0.144. ASSESSMENT 1. Elevated brain natriuretic peptide concerning for heart failure in the setting of right-sided pleural effusion. 2. Status post appendectomy. 3. Status post umbilical hernia repair. 4. Multiple sclerosis. RECOMMENDATIONS 1. Obtain echocardiogram. 2. Pulmonary on case. Defer inhalers to Dr. Quezada's expertise. 3. Depending on findings, consider a trial of diuretics. However, clinically on exam, do not see today JVD or leg edema. Will await echo results. Job#: [id number] RI
--- NOTE | 2018-07-04 14:43 | NUR ---
Met with pt and her . She lives at home with her . She is non ambulatory due to her Multiple Sclerosis. She has a wheelchair, light weight transfer wheelchair, and a rollator. She does not have a hospital bed, but stated she may need one soon. She has a provider with [facility] for 30 hours a week Mon thru Sun. stated traffic survey technician concerned with her lungs, due to her MS, and stated she could not yet discharge home. denies any needs at this time.
--- NOTE | 2018-07-04 16:00 | NUR ---
COMPLETED BED BATH PROVIDED. PATIENT REPOSITIONED IN BED. CALL LIGHT AT REACH.
[2018-07-04] MEDS: TRAMADOL HCL 50 MG TAB PO PRN (16:10)
[2018-07-04] MEDS ORDERED: POTASSIUM CHLORIDE 10MEQ EA PO ONE (16:30)
[2018-07-04] MEDS: ENOXAPARIN SOD INJ 40 MG/0.4 ML SYR SC SCH (17:54)
--- NOTE | 2018-07-04 20:34 | NUR ---
RECEIVED PT IN BED AOX3 .RESPIRATIONS ARE AND UNLABORED TROCAR SITES TO ABDOMEN WITH STITCHES INTACT. DRESSING TO RIGHT LOWER ABDOMEN, MARLA DRAIN SITE. NOTED SWELLING TO THE RT HAND , ELEVATED ON PILLOW. DENIED PAIN AT THIS TIME., CALL LIGHT AT REACH
[2018-07-04] MEDS: TRAZODONE HCL 50 MG TAB PO SCH (21:06)
[2018-07-04] MEDS: ATORVASTATIN 10 MG TAB PO SCH (21:06)
[2018-07-05] MEDS: ALBUTEROL/IPRATROPIUM 3 ML NEB NEB SCH ×4 (00:15→20:20)
[2018-07-05] MEDS: METRONIDAZOLE 500MG/NS 100ML 100 ML IV SCH ×4 (00:17→18:30)
[2018-07-05] MEDS: PIPER-TAZ 3.375 GM 50 ML IV SCH ×4 (00:32→17:10)
[2018-07-05] MEDS: TRAMADOL HCL 50 MG TAB PO PRN ×3 (01:15→21:24)
[2018-07-05] MEDS: MEROPENEM 500MG/ NS 50ML 50 ML IV SCH ×3 (02:59→17:55)
[2018-07-05 05:10] VITALS: BP 124/76
[2018-07-05] MEDS: D5NS/KCL 20MEQ 1,000 ML IV SCH ×2 (05:20→18:45)
[2018-07-05 06:25] LABS: BASOPHILS # (AUTO) 0.1 (0.0-0.1); BASOPHILS % 0.5 % (0.0-1.0); HEMATOCRIT 35.4 % (34.2-44.1); HEMOGLOBIN 11.5 g/dL (12.0-16.0); LYMPHOCYTES # (AUTO) 1.7 (1.0-3.2); LYMPHOCYTES % 12.9 % (18.0-39.1); MEAN CORPUSCULAR HEMOGLOBIN 27.3 pg (28-32); MEAN CORPUSCULAR HGB CONC 32.5 g/dL (31-35); MEAN CORPUSCULAR VOLUME 84.1 fL (81-99); MONOCYTES % 7.6 % (4.4-11.3); NEUTROPHILS # (AUTO) 8.8 (2.1-6.9); PLATELET COUNT 359 x10e3/uL (140-360); RED BLOOD COUNT 4.21 x10e6/uL (3.6-5.1); RED CELL DISTRIBUTION WIDTH 14.1 % (11.7-14.4)
--- NOTE | 2018-07-05 06:32 | NUR ---
PT C/O PAIN AND GIVEN ORDERED PAIN MEDICATION .FAMILY AT THE BEDSIDE CALL LIGHT WITH IN REACH .CONTINUE TO MONITOR
[2018-07-05 06:52] LABS: ALANINE AMINOTRANSFERASE 15 IU/L (0-55); ALBUMIN/GLOBULIN RATIO 0.6 (0.8-2.0); ALKALINE PHOSPHATASE 50 IU/L (40-150); AMYLASE 50 U/L (25-125); ANION GAP 11.6 mmol/L (8-16); BLOOD UREA NITROGEN < 5 mg/dL (7-26); CALCIUM 8.3 mg/dL (8.4-10.2); CARBON DIOXIDE 28 mmol/L (22-29); CHLORIDE 106 mmol/L (98-107); CREATININE, SERUM 0.73 mg/dL (0.57-1.11); EST GLOMERULAR FILTRATION RATE > 60 ML/MIN (60-); GLUCOSE 101 mg/dL (74-118); LIPASE 47 U/L (8-78); POTASSIUM 3.6 mmol/L (3.5-5.1); SODIUM 142 mmol/L (136-145)
[2018-07-05 06:54] LABS: BUN/CREATININE RATIO 7 (6-25)
[2018-07-05 07:15] VITALS: BP 121/75
--- NOTE | 2018-07-05 07:15 | NUR ---
PATIENT IN BED RESTING WITH NO S/S OF PAIN OR DISCOMFORT. SCD IN PLACE, ALL PERSONAL ITEMS CLOSE TO PATIENT. CALL LIGHT AT REACH. FAMILY MEMBER AT BED SIDE.
[2018-07-05] MEDS: BUDESONIDE/FORMOTEROL 160/4.5MCG INHALER INH SCH ×2 (07:18→20:20)
[2018-07-05 07:23] LABS: BAND NEUTROPHILS % (MANUAL) 1 %; EOSINOPHILS % (MANUAL) 9 % (0-7); LYMPHOCYTES % (MANUAL) 24 % (19-48); METAMYELOCYTES % (MANUAL) 1 % (0-0); MONOCYTES % (MANUAL) 3 % (3.4-9.0); NEUTROPHILS % (MANUAL) 61 % (40-74); PLATELET ESTIMATE ADEQUATE; PLATELET MORPHOLOGY COMMENT NORMAL; RBC MORPHOLOGY COMMENT NORMAL
[2018-07-05 08:00] VITALS: BP 121/75
[2018-07-05] MEDS: DULOXETINE HCL 30 MG DELAYED RELEASE PO SCH (09:20)
[2018-07-05] MEDS: PRAMIPEXOLE DIHYDROCHLORIDE 1 MG TAB PO SCH ×2 (09:21→17:22)
[2018-07-05] MEDS: BACLOFEN 10 MG TAB PO SCH ×2 (09:21→17:22)
[2018-07-05] MEDS: POTASSIUM CHLORIDE 20 MEQ TAB CR PO SCH (09:21)
--- NOTE | 2018-07-05 11:42 | NUR ---
IN TO SEE PATIENT,REQUESTED RIGHT SIDE THORACENTESIS TO BE DONE ON SATURDAY. SPOKE WITH PRIYA IN RADIOLOGY, SHE STATED THAT SHE WILL NOTIFY ULTRA SOUND STAFF.
[2018-07-05] MEDS: PANTOPRAZOLE 40 MG 10ML VIAL IV SCH (13:00)
--- NOTE | 2018-07-05 13:12 | NUR ---
Nutrition Screen Note RD Recommendation for Physician: Continue diet as ordered Plan of Care: RD following, monitoring for adequacy and tolerance Nutrition reason for involvement: LOS Primary Diagnose(s): Appendicitis Ht:63 in Wt:199.06lbs BMI:35.3 kg/m2 IBW:115lbs RD Assessment:(07/05/2018) Initial encounter with patient. Pt has a decreased appetite since surgery. Pt denies nausea or vomiting. Pt denies having any difficulty chewing or swallowing. The Pt is able to feed herself. Current Diet: GI soft diet Malnutrition Evaluation (07/05/2018) The patient does not meet criteria for a specified degree of malnutrition at this time. Will re-evaluate at follow-up as appropriate. Diet Education Needs Assessment: Diet education not indicated. Diet Adequacy: Meeting calorie needs, Meeting protein needs, Meeting fluid needs Tolerance: Tolerating PO Nutrition Care Level:Rich Oviedo RD, LD, CNSC
[2018-07-05 13:14] VITALS: BP 116/71
--- NOTE | 2018-07-05 15:30 | NUR ---
PATIENT ASSISTED WITH BED BATH, LINENS CHANGED. IN BED RESTING WITH NO RESPIRATORY DISTRESS. FAMILY MEMBER AT BED SIDE, CALL LIGHT AT REACH.
--- NOTE | 2018-07-05 15:36 | Progress Note ---
DATE: CARDIOLOGY PROGRESS NOTE SUBJECTIVE: No new complaints. OBJECTIVE VITAL SIGNS: Temperature 98.2, heart rate 86, blood pressure 116/71, respiratory rate 20, O2 sat 95%. GENERAL: In no acute distress. Alert. NECK: No JVD. CHEST: With decreased breath sounds in the right lower half of the lung perales. CARDIOVASCULAR: Regular rate and rhythm. Normal S1, S2. ABDOMEN: Soft. Bowel sounds positive. No rebound or guarding. Dressings is in place. EXTREMITIES: No edema. extremities. CARDIOVASCULAR MEDICATIONS: Reviewed; 1. KCl. 2. Lovenox subcutaneous 40 mg daily. 3. Zosyn, metronidazole, meropenem antibiotics. STUDIES: Reviewed.. Sodium 142, potassium 3.6, chloride 106, bicarbonate 28, BUN less than 5, creatinine 0.73, glucose 101, white blood cells 12.8, hemoglobin 11.5, platelets 359, INR 1.19, AST 12, ALT 15. ASSESSMENT 1. Status post appendectomy for appendicitis. 2. Status post hernia repair, umbilical. 3. Multiple sclerosis. 4. Pleural effusion, under lung evaluation. 5. Concern for underlying acute heart failure, specified. RECOMMENDATIONS: Patient clinically seems euvolemic on exam. No JVD or edema. Pleural effusion suspect might be related to underlying abdominal inflammation and pathology. Plan for a possible thoracentesis described by patient. Echocardiogram done. Images currently unavailable for review. We will recheck later today and formally report as soon as able to review images. Further recommendations to follow. Job#: [id number] KIM
[2018-07-05 16:00] VITALS: BP 109/62
[2018-07-05] MEDS: ENOXAPARIN SOD INJ 40 MG/0.4 ML SYR SC SCH (17:22)
[2018-07-05 20:00] VITALS: BP 125/79
[2018-07-05] MEDS: ATORVASTATIN 10 MG TAB PO SCH (21:22)
[2018-07-05] MEDS: TRAZODONE HCL 50 MG TAB PO SCH (21:22)
[2018-07-06] VITALS (7 sets, daily range): BP systolic 94–119; BP diastolic 54–83
[2018-07-06] MEDS: ALBUTEROL/IPRATROPIUM 3 ML NEB NEB SCH ×4 (01:40→19:00)
[2018-07-06] MEDS: MEROPENEM 500MG/ NS 50ML 50 ML IV SCH ×3 (02:00→18:00)
--- NOTE | 2018-07-06 04:42 | NUR ---
Patient laying in bed with HOB slightly elevated. AAO x 4. Bed at low position and locked. Call light within reach and reminded patient to utilize when assistance is needed. No SOB noted. No acute distress noted. Patient reports of no pain at this time. Patient in stable condition and will continue to monitor. Currently on 2LPM per NC. at the bedside.
[2018-07-06 06:23] LABS: BASOPHILS # (AUTO) 0.1 (0.0-0.1); BASOPHILS % 0.6 % (0.0-1.0); EOSINOPHILS # (AUTO) 0.6 (0.0-0.4); EOSINOPHILS % 4.2 % (0.0-6.0); HEMATOCRIT 34.8 % (34.2-44.1); HEMOGLOBIN 11.5 g/dL (12.0-16.0); LYMPHOCYTES # (AUTO) 1.9 (1.0-3.2); LYMPHOCYTES % 13.2 % (18.0-39.1); MEAN CORPUSCULAR HEMOGLOBIN 27.6 pg (28-32); MEAN CORPUSCULAR VOLUME 83.5 fL (81-99); MONOCYTES # (AUTO) 1.1 (0.2-0.8); MONOCYTES % 7.6 % (4.4-11.3); NEUTROPHILS # (AUTO) 10.1 (2.1-6.9); NEUTROPHILS % 68.9 % (38.7-80.0); PLATELET COUNT 394 x10e3/uL (140-360); RED BLOOD COUNT 4.17 x10e6/uL (3.6-5.1); RED CELL DISTRIBUTION WIDTH 14.3 % (11.7-14.4)
[2018-07-06 06:41] LABS: ANION GAP 12.6 mmol/L (8-16); BLOOD UREA NITROGEN < 5 mg/dL (7-26); CALCIUM 8.4 mg/dL (8.4-10.2); CARBON DIOXIDE 26 mmol/L (22-29); CHLORIDE 103 mmol/L (98-107); EST GLOMERULAR FILTRATION RATE > 60 ML/MIN (60-); GLUCOSE 118 mg/dL (74-118); POTASSIUM 3.6 mmol/L (3.5-5.1); SODIUM 138 mmol/L (136-145)
[2018-07-06 06:49] LABS: BUN/CREATININE RATIO 7 (6-25)
[2018-07-06] MEDS: METRONIDAZOLE 500MG/NS 100ML 100 ML IV SCH ×5 (06:57→23:27)
[2018-07-06] MEDS: PIPER-TAZ 3.375 GM 50 ML IV SCH ×4 (06:58→17:33)
--- NOTE | 2018-07-06 07:05 | NUR ---
PATIENT REPOSITIONED IN BED BY 2 STAFFS. ENCOURAGED TO USE THE INCENTIVE SPIROMETER. BED IN LOWER POSITION, CALL LIGHT AT REACH.
[2018-07-06] MEDS: BUDESONIDE/FORMOTEROL 160/4.5MCG INHALER INH SCH ×2 (07:38→19:00)
[2018-07-06] MEDS: PRAMIPEXOLE DIHYDROCHLORIDE 1 MG TAB PO SCH ×2 (09:00→17:33)
[2018-07-06] MEDS: BACLOFEN 10 MG TAB PO SCH ×2 (09:00→17:33)
[2018-07-06] MEDS: DULOXETINE HCL 30 MG DELAYED RELEASE PO SCH (09:00)
[2018-07-06 10:19] LABS: EOSINOPHILS % (MANUAL) 7 % (0-7); LYMPHOCYTES % (MANUAL) 15 % (19-48); MONOCYTES % (MANUAL) 6 % (3.4-9.0); NEUTROPHILS % (MANUAL) 69 % (40-74)
[2018-07-06 10:20] LABS: BAND NEUTROPHILS % (MANUAL) 3 %; PLATELET ESTIMATE ADEQUATE; PLATELET MORPHOLOGY COMMENT NORMAL; RBC MORPHOLOGY COMMENT NORMAL
[2018-07-06] MEDS: POTASSIUM CHLORIDE 20 MEQ TAB CR PO SCH (10:23)
[2018-07-06] MEDS: TRAMADOL HCL 50 MG TAB PO PRN ×2 (11:15→23:30)
--- NOTE | 2018-07-06 11:41 | NUR ---
PATIENT C/O ABDOMINAL PAIN. PRN PAIN MEDICATION ADMINISTERED ORDERED. WILL CONTINUE TO MONITOR.
[2018-07-06] MEDS: D5NS/KCL 20MEQ 1,000 ML IV SCH ×2 (12:10→15:00)
[2018-07-06] MEDS: PANTOPRAZOLE 40 MG 10ML VIAL IV SCH (13:01)
--- NOTE | 2018-07-06 14:11 | NUR ---
OPEN BLISTER NOTED TO RIGHT UPPER THIGH, NOTIFIED, NEW ORDER RECEIVED.
--- NOTE | 2018-07-06 16:38 | NUR ---
PATIENT TURNS SELF IN BED. ASSISTED WITH DIAPER CHANGE. BED IN LOWER POSITION, CALL LIGHT AT REACH.
--- NOTE | 2018-07-06 17:13 | Progress Note ---
DATE: July 06, 2018 CARDIOLOGY PROGRESS NOTE SUBJECTIVE: Constipated. No other complaints currently. Denies any chest pain or shortness of breath. OBJECTIVE VITAL SIGNS: Temperature 97.2, heart rate 88, respiratory rate 20, blood pressure 97/69, O2 sat 96% on room air. GENERAL: In no acute distress. Alert. NECK: No JVD. CHEST: Decreased breast sounds in right side lung perales. CARDIOVASCULAR: Regular rate and rhythm. Normal S1 and S2. No S3. No S4. ABDOMEN: Soft. Dressing is in place. EXTREMITIES: With no edema. Warm distal extremities. CARDIOVASCULAR MEDICATIONS: Reviewed; 1. Zosyn. 2. Meropenem 3. Atorvastatin 10 mg at bedtime. 4. Lovenox 40 mg subcutaneous daily. 5. P.r.n. morphine. STUDIES: White blood cells 14.6, hemoglobin 11.5, platelets 394. Sodium 138, potassium 3.6, chloride 103, bicarbonate 26, BUN less than 5, creatinine 0.7, glucose 118, calcium 8.4. ASSESSMENT 1. Status post appendectomy for acute appendicitis. 2. Status post umbilical hernia repair. 3. Multiple sclerosis. 4. Pleural effusion. 5. Preserved left ventricular systolic function on echocardiogram. RECOMMENDATIONS: Plans for possible thoracentesis tomorrow. Sent fluids for further evaluation. Suspect inflammatory component related to recent abdominal pathology, unlikely to be cardiac in origin. Continue rest of cardiovascular medications. Job#: [id number] LEXIE
[2018-07-06] MEDS: BACITRACIN ZINC 15 GM OINT TOP SCH (17:33)
[2018-07-06] MEDS: ENOXAPARIN SOD INJ 40 MG/0.4 ML SYR SC SCH (17:33)
--- NOTE | 2018-07-06 19:20 | NUR ---
patient recieved awake, alert, lying quietly in bed. vss. no c/o pain noted. ivf continue to infuse without difficulty. /3l/nc in use. respirations even and unlabored. patient to be npo after mn for thoacentesis tomorrow. patient verbalizes understanding of this. pm assessment complete. patients noted at the the bedside. patient/ instructed to call for assistance when needed.
[2018-07-06] MEDS: TRAZODONE HCL 50 MG TAB PO SCH (20:52)
[2018-07-06] MEDS: ATORVASTATIN 10 MG TAB PO SCH (20:52)
[2018-07-06] MEDS: ONDANSETRON HCL INJ 2 MG/ML VIAL IV PRN (20:52)
--- NOTE | 2018-07-06 20:52 | NUR ---
patient medicated with zofran 4 mg ivp for c/o nausea at this time.
[2018-07-07] VITALS: BP 111/70
--- NOTE | 2018-07-07 | NUR ---
patient appears to be resting quietly. no c/o pain noted. trochar sites to abd remain c,d,i.
[2018-07-07] MEDS: ALBUTEROL/IPRATROPIUM 3 ML NEB NEB SCH ×4 (01:30→20:45)
[2018-07-07] MEDS: MEROPENEM 500MG/ NS 50ML 50 ML IV SCH (01:39)
[2018-07-07 04:00] VITALS: BP 109/74
[2018-07-07] MEDS: METRONIDAZOLE 500MG/NS 100ML 100 ML IV SCH (05:18)
[2018-07-07 05:40] LABS: BASOPHILS # (AUTO) 0.1 (0.0-0.1); BASOPHILS % 0.7 % (0.0-1.0); EOSINOPHILS # (AUTO) 0.7 (0.0-0.4); EOSINOPHILS % 5.3 % (0.0-6.0); HEMATOCRIT 33.9 % (34.2-44.1); HEMOGLOBIN 10.7 g/dL (12.0-16.0); LYMPHOCYTES # (AUTO) 2.3 (1.0-3.2); LYMPHOCYTES % 16.8 % (18.0-39.1); MEAN CORPUSCULAR HEMOGLOBIN 26.6 pg (28-32); MEAN CORPUSCULAR HGB CONC 31.6 g/dL (31-35); MEAN CORPUSCULAR VOLUME 84.1 fL (81-99); MONOCYTES # (AUTO) 0.9 (0.2-0.8); MONOCYTES % 6.7 % (4.4-11.3); NEUTROPHILS # (AUTO) 8.6 (2.1-6.9); NEUTROPHILS % 64.5 % (38.7-80.0); PLATELET COUNT 408 x10e3/uL (140-360); RED BLOOD COUNT 4.03 x10e6/uL (3.6-5.1); RED CELL DISTRIBUTION WIDTH 14.6 % (11.7-14.4)
[2018-07-07 05:50] LABS: INR 1.06; PROTHROMBIN TIME 14.8 seconds (11.9-14.5)
[2018-07-07 05:51] LABS: PARTIAL THROMBOPLASTIN TIME 35.7 seconds (23.8-35.5)
[2018-07-07 05:54] LABS: ALANINE AMINOTRANSFERASE 30 IU/L (0-55); ALBUMIN 1.9 g/dL (3.5-5.0); ALBUMIN/GLOBULIN RATIO 0.6 (0.8-2.0); ALKALINE PHOSPHATASE 48 IU/L (40-150); ANION GAP 10.5 mmol/L (8-16); BLOOD UREA NITROGEN < 5 mg/dL (7-26); CALCIUM 8.5 mg/dL (8.4-10.2); CARBON DIOXIDE 27 mmol/L (22-29); CHLORIDE 106 mmol/L (98-107); CREATININE, SERUM 0.74 mg/dL (0.57-1.11); EST GLOMERULAR FILTRATION RATE > 60 ML/MIN (60-); GLUCOSE 110 mg/dL (74-118); POTASSIUM 3.5 mmol/L (3.5-5.1); SODIUM 140 mmol/L (136-145)
[2018-07-07 05:56] LABS: BUN/CREATININE RATIO 7 (6-25)
[2018-07-07] MEDS: PIPER-TAZ 3.375 GM 50 ML IV SCH ×4 (05:58→18:17)
--- NOTE | 2018-07-07 06:00 | NUR ---
consent obtained for right thoracentesis at this time and placed on patients chart. bath and skin care provided at this time. mild rash noted to patients back.
--- NOTE | 2018-07-07 06:45 | NUR ---
new iv #20 placed to right forearm x 1 stick. ivf continue to infuse without difficulty.
[2018-07-07] MEDS: BUDESONIDE/FORMOTEROL 160/4.5MCG INHALER INH SCH ×2 (07:00→20:45)
[2018-07-07 08:00] LABS: ANISOCYTOSIS SLIGHT; EOSINOPHILS % (MANUAL) 5 % (0-7); HYPOCHROMASIA SLIGHT; LYMPHOCYTES % (MANUAL) 20 % (19-48); MONOCYTES % (MANUAL) 4 % (3.4-9.0); NEUTROPHILS % (MANUAL) 68 % (40-74); PLATELET ESTIMATE ADEQUATE; PLATELET MORPHOLOGY COMMENT NORMAL; RBC MORPHOLOGY COMMENT NORMAL
[2018-07-07] MEDS: PRAMIPEXOLE DIHYDROCHLORIDE 1 MG TAB PO SCH ×2 (09:00→18:17)
[2018-07-07] MEDS: BACLOFEN 10 MG TAB PO SCH ×2 (09:00→18:17)
[2018-07-07] MEDS: POTASSIUM CHLORIDE 20 MEQ TAB CR PO SCH (09:00)
[2018-07-07] MEDS: DULOXETINE HCL 30 MG DELAYED RELEASE PO SCH (09:00)
[2018-07-07] MEDS: BACITRACIN ZINC 15 GM OINT TOP SCH ×2 (09:15→18:18)
[2018-07-07] MEDS: D5NS/KCL 20MEQ 1,000 ML IV SCH (12:10)
[2018-07-07 12:14] VITALS: BP 102/64
[2018-07-07] MEDS ORDERED: MINERAL OIL 132 ML BTL PR ONE (12:30)
[2018-07-07 13:15] VITALS: BP 102/64
--- NOTE | 2018-07-07 13:20 | Consultation ---
DATE OF CONSULTATION: July 07, 2018 INFECTIOUS DISEASE CONSULTATION ATTENDING PHYSICIAN: Dr. Giovani Garcia. REASON FOR CONSULTATION: Leukocytosis. Thank you, Dr. Garcia, for asking me to see this patient. HISTORY: The patient is a 48-year-old woman referred for leukocytosis. She was admitted through the emergency department with acute appendicitis. She presented to the emergency department on June 30, 2018, with right lower quadrant abdominal pain, associated with nausea and vomiting. The patient was evaluated by the surgical service and successfully underwent laparoscopic appendectomy. The patient has developed right pleural effusion and has been scheduled for a right thoracentesis today. The patient reports constipation for several days but denies nausea and vomiting. Also, she denies dysuria. She has had elevated blood leukocyte count since admission in a range 12,170 to 28,230, which has markedly improved with management. The patient's stated that the blood leukocyte count is higher than normal and that the issue had been discussed in the past with the patient's neurologist. PAST MEDICAL HISTORY: Multiple sclerosis and asthma. PAST SURGICAL HISTORY: Hysterectomy. ALLERGIES: AZITHROMYCIN, ERYTHROMYCIN, SULFA AND HYDROCODONE. MEDICATIONS: The current antibiotics are Zosyn 3.375 grams IV piggyback q.6 hours, meropenem 500 mg IV piggyback q. 6 hours and metronidazole 500 mg IV piggyback q.6 hours. IMMUNIZATION: She has not received influenza vaccine this season, and she has not received influenza vaccine because she stated that it makes her very, very, very sick. FAMILY HISTORY: Significant for pancreatic cancer. SOCIAL HISTORY: She quit smoking cigarettes about 12 years ago. She smoked for 8 years prior. No alcohol or recreational drug use. REVIEW OF SYSTEMS: As per history of present illness. She denies fever, chills, cough, shortness of breath, nausea, vomiting and dysuria. She reports to have constipation. PHYSICAL EXAMINATION: GENERAL: No acute distress and does not appear toxic. VITALS: T-max 98.2, pulse 87, respiratory rate 18, blood pressure 102/64, weight 201 pounds. HEENT: Normocephalic. There is no icterus or injection of conjunctivae. There is no ear or nasal discharge. Moist oral mucosa. No pharyngeal erythema or exudate. NECK: Supple. No meningismus. LUNGS: Decreased breath sounds. HEART: Normal S1 and S2. Regular. ABDOMEN: Soft with mild right lower quadrant tenderness. EXTREMITIES: There is no edema, clubbing or cyanosis. SKIN: There is no acute erythema. SOLID WASTE TECHNICIAN: Awake, alert and oriented to person, place and time. LABORATORY AND DIAGNOSTICS: WBC 13, 360, hemoglobin 10.7, platelet 408,000, neutrophil 64.5, lymph 16.8, mono 6.7, eosinophil 5.3, basophil 0.7. BUN less than 5, creatinine 0.74. AST 47, ALT 30, alk phos 48, total bilirubin 0.3. Amylase 50, lipase 47. Chest x-ray showed increasing right pleural effusion, and a plain abdominal x-ray showed postoperative ileus. IMPRESSION: 1. Resolving leukocytosis due to acute gangrenous appendicitis. 2. Constipation. 3. Pleural effusion. 4. Multiple sclerosis. PLAN: 1. Stop meropenem and metronidazole. The patient declined influenza vaccination. 2. Soap and water enema. Job#: [id number] NIR
[2018-07-07] MEDS: PANTOPRAZOLE 40 MG 10ML VIAL IV SCH (13:55)
[2018-07-07] MEDS ORDERED: SOD PHOSPHATE/SOD BIPHOSPHATE ENEMA 132 ML BTL PR ONE ×2 (14:15→21:00)
[2018-07-07 16:44] VITALS: BP 96/67
[2018-07-07] MEDS: ENOXAPARIN SOD INJ 40 MG/0.4 ML SYR SC SCH (18:17)
--- NOTE | 2018-07-07 19:15 | NUR ---
patient recieved awake, alert, lying quietly in bed. vss. no c/o pain noted. patient turned and repositioned for comfort. ivf continue to infuse without difficulty. pm assessment complete. remains at the bedside. patient/ instructed to call for assistance when needed.
--- NOTE | 2018-07-07 19:36 | NUR ---
PT IN BED, CAME BACK FROM PROCEDURE THIS EVENING, 7 ML OF FLUIDS TAKEN OUT AND SEND TO LAB. SITE LOOKS DRY AND INTACT. DENIES PAIN AT MOMENT. DR. HAYES SAID IS OK TO SEND PT HOME FROM HIS POINT. NEXT SHIFT AWARE.
[2018-07-07 20:00] VITALS: BP 103/69
[2018-07-07] MEDS: TRAZODONE HCL 50 MG TAB PO SCH (21:00)
[2018-07-07] MEDS: ATORVASTATIN 10 MG TAB PO SCH (21:00)
[2018-07-07 21:24] LABS: BODY FLUID TYPE PLEURAL
[2018-07-07 21:25] LABS: BODY FLUID APPEARANCE SL.CLOUDY; BODY FLUID COLOR RED
[2018-07-07 21:27] LABS: RBC,BODY FLUID 7851 cells/uL; WBC,BODY FLUID 911 cells/uL
[2018-07-07 22:19] LABS: LYMPHOCYTES,BODY FLUID 47 %; MONO/MACROPHG,BODY FLUID 10 %; NEUTROPHILS,BODY FLUID 43 %
[2018-07-08] VITALS: BP 104/56
[2018-07-08] MEDS: ALBUTEROL/IPRATROPIUM 3 ML NEB NEB SCH ×3 (02:00→13:00)
[2018-07-08] MEDS: D5NS/KCL 20MEQ 1,000 ML IV SCH (03:45)
[2018-07-08 04:00] VITALS: BP 123/58
--- NOTE | 2018-07-08 05:00 | NUR ---
stools x 4 lrg noted throughout the night. skin care provided.
[2018-07-08] MEDS: PIPER-TAZ 3.375 GM 50 ML IV SCH ×3 (05:33→12:40)
[2018-07-08 06:02] LABS: BASOPHILS # (AUTO) 0.1 (0.0-0.1); BASOPHILS % 0.8 % (0.0-1.0); EOSINOPHILS # (AUTO) 0.6 (0.0-0.4); EOSINOPHILS % 4.9 % (0.0-6.0); HEMATOCRIT 36.6 % (34.2-44.1); HEMOGLOBIN 11.6 g/dL (12.0-16.0); LYMPHOCYTES # (AUTO) 2.2 (1.0-3.2); LYMPHOCYTES % 17.6 % (18.0-39.1); MEAN CORPUSCULAR HEMOGLOBIN 26.5 pg (28-32); MEAN CORPUSCULAR HGB CONC 31.7 g/dL (31-35); MEAN CORPUSCULAR VOLUME 83.8 fL (81-99); MONOCYTES # (AUTO) 0.8 (0.2-0.8); MONOCYTES % 6.6 % (4.4-11.3); NEUTROPHILS % 65.1 % (38.7-80.0); PLATELET COUNT 487 x10e3/uL (140-360); RED BLOOD COUNT 4.37 x10e6/uL (3.6-5.1); RED CELL DISTRIBUTION WIDTH 14.5 % (11.7-14.4)
[2018-07-08 06:36] LABS: ALANINE AMINOTRANSFERASE 32 IU/L (0-55); ALBUMIN 2.2 g/dL (3.5-5.0); ALBUMIN/GLOBULIN RATIO 0.6 (0.8-2.0); ALKALINE PHOSPHATASE 55 IU/L (40-150); ANION GAP 11.6 mmol/L (8-16); BLOOD UREA NITROGEN 5 mg/dL (7-26); BUN/CREATININE RATIO 7 (6-25); CALCIUM 8.7 mg/dL (8.4-10.2); CARBON DIOXIDE 27 mmol/L (22-29); CHLORIDE 107 mmol/L (98-107); CREATININE, SERUM 0.75 mg/dL (0.57-1.11); EST GLOMERULAR FILTRATION RATE > 60 ML/MIN (60-); GLUCOSE 102 mg/dL (74-118); MAGNESIUM 1.9 MG/DL (1.3-2.1); POTASSIUM 3.6 mmol/L (3.5-5.1); SODIUM 142 mmol/L (136-145)
[2018-07-08 06:55] LABS: THYROID STIMULATING HORMONE 1.658 uIU/mL (0.350-4.940)
--- NOTE | 2018-07-08 07:05 | NUR ---
Received patient mid fowlers position, side rails upx2, call light within reach, family member at bedside.AAOX3 to time, person,place. Respirations even and unlabored. Instructed patient to use call light for assistance. Voiced understanding. Will continue to monitor.
--- NOTE | 2018-07-08 07:16 | Diagnostic Imaging Report ---
Procedure: Ultrasound-guided right diagnostic thoracentesis movie shot camera operator: Ralf Mckenzie MD Pre-operative diagnosis: Trace right pleural effusion Post-operative diagnosis: Trace right pleural effusion Sedation: Local (1% subcutaneous lidocaine) Estimated blood loss: Minimal Implants: None TECHNIQUE/FINDINGS: Informed consent was obtained from the patient and documented in the medical record. The patient was placed in the upright position. The right posterior chest was prepped and draped in standard sterile fashion. 1% lidocaine was infiltrated into the skin and subcutaneous tissues for local anesthesia. A 25 gauge lidocaine needle was advanced under continuous sonographic guidance into the right pleural space. Subsequently, a total of 7 cc of serous fluid was aspirated. The needle was removed and a sterile, occlusive dressing was applied. Sample was sent to the lab. The patient tolerated the procedure well. IMPRESSION: Ultrasound-guided right diagnostic thoracentesis with removal of 7 cc of serous fluid. Signed by: Dr. Ralf Mckenzie MD on 07/08/2018 7:12 AM
[2018-07-08 07:44] VITALS: BP 113/58
[2018-07-08] MEDS: BUDESONIDE/FORMOTEROL 160/4.5MCG INHALER INH SCH (07:49)
[2018-07-08 08:10] VITALS: BP 113/58
[2018-07-08] MEDS: BACITRACIN ZINC 15 GM OINT TOP SCH (10:12)
[2018-07-08] MEDS: BACLOFEN 10 MG TAB PO SCH (10:12)
[2018-07-08] MEDS: DULOXETINE HCL 30 MG DELAYED RELEASE PO SCH (10:12)
[2018-07-08] MEDS: POTASSIUM CHLORIDE 20 MEQ TAB CR PO SCH (10:12)
[2018-07-08] MEDS: PRAMIPEXOLE DIHYDROCHLORIDE 1 MG TAB PO SCH (10:12)
[2018-07-08 11:50] VITALS: BP 115/57
[2018-07-08] MEDS: PANTOPRAZOLE 40 MG 10ML VIAL IV SCH (12:40)
--- NOTE | 2018-07-08 13:50 | NUR ---
aware of rash on back. No new orders.
[2018-07-08] MEDS ORDERED: AUGMENTIN 500-1 EACH PO (14:43)
[2018-07-08] MEDS ORDERED: PANTOPRAZOLE SO40 MG PO (14:46)
[2018-07-08] MEDS ORDERED: FLAGYL250 MG PO (14:46)
[2018-07-08] MEDS ORDERED: TYLENOL WITH C1 EACH PO (14:47)
[2018-07-08] MEDS ORDERED: ZOFRAN4 MG PO (14:49)
--- NOTE | 2018-07-08 15:06 | Discharge Summary ---
CONSULTATION BY 1. Dr. Rj Jarvis, general surgery. 2. Dr. Quezada, yard associate. 3. Dr. Tatum, manager [facility]. 4. Dr. Leone, infectious disease. PROCEDURES 1. Laparoscopic appendectomy. 2. Ventral herniorrhaphy done by Dr. Jarvis on 06/30/2018. 3. Ultrasound-guided right-sided thoracentesis done by interventional radiologist, Dr. Ralf Mckenzie on 07/07/2018. FINAL DIAGNOSIS: Acute gangrenous appendicitis, status post laparoscopic appendectomy during this hospitalization. OTHER DIAGNOSES 1. Ventral hernia, status post ventral herniorrhaphy during this hospitalization. 2. Bronchial asthma by history. 3. Small right pleural effusion, transudative, status post thoracentesis during this hospitalization. 4. Leukocytosis, improved. 5. Hypokalemia, resolved. 6. Multiple sclerosis by history. BRIEF HOSPITAL COURSE: A 48-year-old female who was admitted from ER with right-sided abdominal pain. Patient was found to have acute appendicitis with leukocytosis. Dr. Rj Jarvis was consulted from ER. He had an emergent appendectomy after informed consent. Patient also was found having ventral hernia. Patient had both appendectomy and ventral herniorrhaphy laparoscopically by Dr. Jarvis. Patient was planned for discharge on 07/04/2018, but her leukocytosis was persisting. Chest x-ray shows increasing pleural effusion for which her discharge was kept on hold. She was cleared by Dr. Jarvis for discharge with oral Augmentin. Because of patient's persistent leukocytosis, Dr. Leone, infectious disease specialist was consulted. He recommended continuation of Zosyn IV. Patient was afebrile. Dr. Quezada, yard associate, was consulted for pleural effusion. He recommended ultrasound-guided thoracentesis which was done yesterday by interventional radiologist. Pleural fluid analysis shows transudative fluid. No sign of infection. She was cleared by yard associate for discharge. Patient would be discharged today with instruction for continuation of oral antibiotic. She is also advised to follow with Dr. Jarvis, general surgeon, and her PCP, Dr. Giovani Garcia in 1 week. Patient is hemodynamically stable at discharge. PHYSICAL EXAMINATION VITALS: Today, BP 115/57, pulse 79, temp 97.9, respirations 19, SpO2 95% on 2 liters of oxygen. GENERAL: Alert, oriented, not in acute distress. HEENT: No pallor. No icterus. NECK: No JVD. No carotid bruits. No lymphadenopathy. No thyromegaly. HEART: S1, S2 regular. No murmur. LUNGS: Clear to auscultation. ABDOMEN: Soft, nontender. No palpable mass. Bowel sounds active in all quadrants. No rebound tenderness. EXTREMITIES: No edema, cyanosis, clubbing. NEUROLOGICAL: Paresis, bilateral lower extremities due to multiple sclerosis. LAB DATA: CBC: WBC 12.3, hemoglobin 11.6, hematocrit 36.6, platelets 487, MCV 83, RDW 14, neutrophils 65, lymphocytes 17. PT 14.8, INR 1.06, PTT 35.7. Chemistry panel: Sodium 142, potassium 3.6, chloride 107, CO2 of 27, anion gap 8, BUN 5, creatinine 0.7, glucose 102, total calcium 8.7, magnesium 1.9, total bilirubin 0.4, AST 42, ALT 32, alk phos 55, total bilirubin 0.4. CK 74, CK-MB 0.7, troponin I 0.14. BNP 77. Total protein 5.7, albumin 2.2, globulin 3.5, amylase 15, lipase 47, TSH 1.65. Urinalysis negative for protein, glucose, ketones, nitrites positive, leukocyte esterase negative, wbc's 0 to 5, rbc's 11 to 20. Pleural fluid study: WBC 911, RBC 7851, neutrophils 43%, lymphocytes 47%. Total protein 2.2, LDH 218. MICROBIOLOGICAL DATA: Last culture, no growth after 5 days. RADIOLOGICAL DATA: Abdomen x-ray done last on 06/26/2018, dilated small loops with air but prominent colonic loops, finding likely represents postoperative ileus. X-ray, chest, on 07/04/2018, increasing right pleural effusion. CT abdomen and pelvis with contrast at presentation, acute and complicated appendicitis, nonspecific circumferential bladder wall thickening. Appendix biopsy, gangrenous appendicitis with transmural necrosis associated periappendicitis. MEDICATIONS AT DISCHARGE: Please refer to the med reconciliation sheet. DIET: Heart-healthy diet. ACTIVITY: As tolerated. Fall precaution advised. INSTRUCTIONS AT DISCHARGE: Continue medications as per discharge recommendations. Follow up with general surgery, pulmonology as available. Follow up with PCP, Dr. Giovani Garcia, in 1 week. Repeat CBC, CMP in 1 week. Job#: [id number] LPA
[2018-07-08 16:00] VITALS: BP 139/63
--- NOTE | 2018-07-08 16:34 | NUR ---
Right FA IV discontinued. No signs of infiltration noted. 2x2 gauze and tape placed. Taken via wheelchair by PCT to personal car. Accompanied by and friend. AAOX4 to time, person, place, situation. Respirations even and unlabored. Dressing to Right abdomen clean, dry, and intact. Trochar sites open to air clean, dry, and intact. RX, discharge instructions, and all personal belongings taken with patient.
--- NOTE | 2018-07-08 17:59 | Progress Note ---
DATE: July 08, 2018 CARDIOLOGY PROGRESS NOTE SUBJECTIVE: No new complaints. OBJECTIVE VITAL SIGNS: Temperature 97.9, heart rate 92, respiratory rate 20, blood pressure 115/57, O2 sat 97% on room air. GENERAL: In no acute distress, alert. NECK: No JVD. CHEST: Clear to auscultation, overall improved. CARDIOVASCULAR: Regular rate and rhythm. Normal S1 and S2. No S3. No S4. No murmurs. No rubs. ABDOMEN: Soft, nontender. EXTREMITIES: Trace edema. CARDIOVASCULAR MEDICATIONS: Reviewed; 1. Atorvastatin 10 mg daily. 2. Lovenox 40 mg subcutaneous daily. 3. KCl 20 mEq daily. STUDIES: Reviewed. Sodium 142, potassium 3.6, chloride 107, bicarbonate 27, BUN 5, creatinine 0.75. White blood cells 12.3, hemoglobin 11.6, platelets 487. INR 1.06. AST 22, ALT 32. ASSESSMENT 1. Pleural effusion status post thoracentesis, right. 2. Multiple sclerosis. 3. Status post appendectomy for appendicitis. 4. Impaired left ventricular relaxation with preserved left ventricular systolic function on echocardiogram. 5. Dyslipidemia. RECOMMENDATIONS 1. Continue current cardiovascular medications. 2. Outpatient followup advised in 6 to 8 weeks. Job#: [id number] LEXIE
== END 2018-07-08 16:34 | disposition home or self-care (01) | DRG 342 ==
LOC: ER 00:21 → ERHOLD 05:44 → MED/SURG3 06:03 → OBSVTOIN 13:02
PROVIDERS: ADMIT Internal Medicine; ATTEND Internal Medicine
PROC: 0WQF4ZZ Repair Abdominal Wall, Percutaneous Endoscopic Approach (ICD-10-PCS; 2018-06-30)
PROC: 0DTJ4ZZ Resection of Appendix, Percutaneous Endoscopic Approach (ICD-10-PCS; principal; 2018-06-30 16:30)
PROC: 0W993ZX Drainage of Right Pleural Cavity, Percutaneous Approach, Diagnostic (ICD-10-PCS; 2018-07-07)
DX: K35.891 Other acute appendicitis without perforation, with gangrene (principal); J90 Pleural effusion, not elsewhere classified; K56.7 Ileus, unspecified; K42.9 Umbilical hernia without obstruction or gangrene; J45.909 Unspecified asthma, uncomplicated; G35 Multiple sclerosis; E78.5 Hyperlipidemia, unspecified; E87.6 Hypokalemia; Z87.891 Personal history of nicotine dependence; R32 Unspecified urinary incontinence; Z88.1 Allergy status to other antibiotic agents; Z88.5 Allergy status to narcotic agent; Z88.2 Allergy status to sulfonamides
CPT/HCPCS: 32555; 36415; 71045; 71046; 74018; 74177; 74470; 80048; 80053; 80076; 81001; 82150; 82550; 82553; 83605; 83615; 83690; 83735; 83880; 84157; 84443; 84484; 85025; 85610; 85730; 87040; 88304; 89051; 93005; 93306; 94640; 94667; 96361; 97139; 99284; C1766; J0696; J1100; J1650; J1956; J2001; J2250; J2270; J2405; J2543; J7030; Q9967

== ENCOUNTER 2022-05-02 18:09 | Emergency (ER) | payer MEDICARE, OTHER ==
[~2022-05-02] VITALS: Ht 160 cm; Wt 89.4 kg
[~2022-05-02 18:09] MED LIST: ATORVASTATIN CA10 MG PO; AUGMENTIN 500-1 EACH PO; BACLOFEN10 MG PO; CYMBALTA30 MG PO; DULERA 100 MCG/13 GM IH; FLAGYL250 MG PO; PANTOPRAZOLE SO40 MG PO; PRAMIPEXOLE DIHY1 MG PO; TRAZODONE HCL50 MG PO; TYLENOL WITH C1 EACH PO; ULTRAM50 MG PO; ZOFRAN4 MG PO
[2022-05-02] MEDS ORDERED: BUPIVACAINE HCL 0.25% 10ML MPF VIAL INJ ONE (19:00)
[2022-05-02] MEDS ORDERED: IBUPROFEN600 MG PO (20:43)
== END 2022-05-02 21:11 | disposition home or self-care (01) ==
LOC: ER 19:42
DX: S63.251A Unspecified dislocation of left index finger, initial encounter (principal); W23.1XXA Caught, crushed, jammed, or pinched between stationary objects, initial encounter; Y92.89 Other specified places as the place of occurrence of the external cause; G35 Multiple sclerosis; J45.909 Unspecified asthma, uncomplicated
CPT/HCPCS: 99282

== ENCOUNTER 2024-08-16 12:22 | Emergency (ER) | payer MEDICARE ==
[~2024-08-16] VITALS: Ht 160 cm; Wt 89.4 kg
[~2024-08-16 12:22] MED LIST changes: +IBUPROFEN600 MG PO
[2024-08-16 12:28] VITALS: PULSE 77; RESP 15; TEMP 98.4; O2SAT 97
[2024-08-16] MEDS: TRAMADOL HCL 50 MG TAB PO ONE (12:47)
[2024-08-16] MEDS ORDERED: HYDROCODONE/APAP 5MG-325MG TAB PO ONE (13:30)
[2024-08-16] MEDS: LIDOCAINE HCL 1% LOCAL INJ 20 ML VIAL INJ ONE (15:57)
== END 2024-08-16 15:58 | disposition home or self-care (01) ==
LOC: ER 12:33
DX: S63.287A Dislocation of proximal interphalangeal joint of left little finger, initial encounter (principal); X50.1XXA Overexertion from prolonged static or awkward postures, initial encounter; Y92.89 Other specified places as the place of occurrence of the external cause; G35 Multiple sclerosis; J45.909 Unspecified asthma, uncomplicated
CPT/HCPCS: 26770; 73140; 99284; J2003